=== PATIENT | female | born 1980 | race Two or more races ===

== ENCOUNTER 2016-05-25 10:17 | Emergency (ER) | payer BC, MEDICAID ==
[~2016-05-25] VITALS: Ht 154.9 cm; Wt 97.5 kg
[2016-05-25] MEDS ORDERED: KETOROLAC TROMETH 60MG/2ML VIAL IM ONE (12:00)
[2016-05-25 12:41] VITALS: BP 143/95
== END 2016-05-25 13:32 | disposition home or self-care (01) ==
LOC: ER 10:22
DX: G44.209 Tension-type headache, unspecified, not intractable (principal); I10 Essential (primary) hypertension
CPT/HCPCS: 70450; 96372; 99284; J1885